=== PATIENT | female | born 2000 | race Caucasian/White ===

== ENCOUNTER 2019-11-10 01:02 | Emergency (ER) | payer OTHER ==
[~2019-11-10] VITALS: Ht 170.2 cm; Wt 99.8 kg
[~2019-11-10 01:02] MED LIST: AMOX50SU PO; CEFT18SU PO; DIPH50 PO; IBUP800 PO; NEOPOLHCSU OT; PROM6.25SY PO; RANI150 PO; RXOXYACE PO
== END 2019-11-10 05:54 | disposition home or self-care (01) ==
LOC: ER 01:02
DX: S00.551A Superficial foreign body of lip, initial encounter (principal); W45.8XXA Other foreign body or object entering through skin, initial encounter
CPT/HCPCS: 99283